=== PATIENT | male | born 1960 | race Caucasian/White ===

== ENCOUNTER 2019-08-03 01:07 | Emergency (ER) | payer BC ==
[~2019-08-03] VITALS: Ht 185.4 cm; Wt 83.9 kg
--- NOTE | 2019-08-03 01:23 | ED.ADGEN ---
Past History Past Medical History: GERD, Kidney Stones, Other Past Medical History Bilateral inguinal hernias Smoking: Cigarettes Adult General Chief Complaint Chief Complaint ".. I am having bad abdomen pain... I ve had it off and on the past month or so.. 2 weeks I had a really bad spell. . and tonight it is again really bad.. ".. It seem to start in my upper area.. but now... it is in my flank or the right.. and down here on right.. I got bad inguinal hernias. .. I ve had past GERD.. kidney stones.. .. 5- 6 yrs ago.. I had bad spell and it was because I got dehydrate.. I use to see Rustam.. but I have not been to his office maybe 12 rs." [facility] HPI Patient is a 59 year old male who presents with above hx and complaints epiga stric and severe abdomen pain patient rates his pain 10 out of 10. Patient has had pain persistently tonight and seems to be radiating from upper abdomen to right lower abdomen. Patient is also localized in right flank. Patient denies any trauma or specific ill contacts. No history of bad food. Did have a recent episode of diarrhea approximately 2 weeks ago. Pain has been somewhat intermittent for the past 2 weeks. Patient did have a stool tonight. Patient does have markedly large bilateral inguinal hernias. They appear to be reducible. Patient does have some pain on percussion of right flank. Patient's primary of the past has been Dr. Wall. Review of Systems Review of Systems Constitutional: Denies fever or chills [] Eyes: Denies change in visual acuity, redness, or eye pain [] HENT: Denies nasal congestion or sore throat [] Respiratory: Denies cough or shortness of breath [] Cardiovascular: No additional information not addressed in HPI [] GI: Complaints of epigastric and right flank and mid abdominal pain, nausea,. No recent history of, bloody stools or diarrhea []did have episode of diarrhea 2 weeks ago. Chronic large inguinal hernias. ( Not currently causing discomfort.) : Denies dysuria or hematuria [] Musculoskeletal: Complaints are right flank back pain Integument: Denies rash or skin lesions [] Neurologic: Denies headache, focal weakness or sensory changes [] Endocrine: Denies polyuria or polydipsia [] All other systems were reviewed and found to be within normal limits, except as documented in this note. Family History Family History Noncontributory Current Medications Current Medications Current Medications Medications (Trade) Dose Ordered Sig/Lauren Start Time Stop Time Status Last Admin Dose Admin Ceftriaxone Sodium 1 gm/ Sodium Chloride 50 ml @ 100 mls/hr 1X ONCE 08/03/19 05:30 08/03/19 05:59 DC 08/03/19 05:46 100 MLS/HR Ceftriaxone Sodium (Rocephin) 1 gm STK-MED ONCE 08/03/19 05:32 08/03/19 05:32 DC Famotidine (Pepcid Vial) 20 mg 1X ONCE 08/03/19 01:45 08/03/19 03:23 DC 08/03/19 02:31 20 MG Info (Do NOT chart on this entry -- for MONITORING) 1 each PRN DAILY PRN 08/03/19 03:30 08/05/19 03:29 Iohexol (Omnipaque 240 Mg/ml) 30 ml 1X ONCE 08/03/19 03:15 08/03/19 03:23 DC 08/03/19 04:03 30 ML Iohexol (Omnipaque 300 Mg/ml) 75 ml 1X ONCE 08/03/19 03:15 08/03/19 03:23 DC 08/03/19 04:03 75 ML Ketorolac Tromethamine (Toradol 30mg Vial) 30 mg 1X ONCE 08/03/19 01:45 08/03/19 03:23 DC 08/03/19 02:31 30 MG Lactated Ringer's 1,000 ml @ 1,000 mls/hr Q1H 08/03/19 01:40 08/03/19 03:23 DC 08/03/19 02:30 1,000 MLS/HR Metronidazole 100 ml @ 100 mls/hr 1X ONCE 08/03/19 05:30 08/03/19 06:29 DC 08/03/19 05:46 100 MLS/HR Morphine Sulfate (Morphine 10mg Syringe) 10 mg 1X ONCE 08/03/19 02:15 08/03/19 03:23 DC 08/03/19 02:43 10 MG Ondansetron HCl (Zofran) 8 mg 1X ONCE 08/03/19 01:45 10/28/19 03:23 DC 08/03/19 02:30 8 MG Sodium Chloride 50 ml @ As Directed STK-MED ONCE 08/03/19 05:31 08/03/19 05:32 DC Allergies Allergies Allergies Coded Allergies Type Severity Reaction Last Updated Verified No Known Drug Allergies 08/03/19 No See nursing for home meds and allergies Physical Exam Physical Exam Constitutional: in acute distress, non-toxic appearance. [] HENT: Normocephalic, atraumatic, bilateral external ears normal, oropharynx dry,, no oral exudates, nose normal. [] Eyes: PERRLA, EOMI, conjunctiva normal, no discharge. [] Neck: Normal range of motion, no tenderness, supple, no stridor. [] Cardiovascular:Heart rate regular rhythm, no murmur [] Lungs & Thorax: Bilateral breath sounds equal at apexes scattered wheezes on auscultation [] Abdomen: Bowel sounds normal, soft, epigastric and right flank abdomen tenderness, large bilateral inguinal hernias, the areas appear to be reducible, no pulsatile masses. [] Rebound to mid abdomen and right flank Skin: Warm, diaphoretic, no erythema, no rash. [] Back: No tenderness, right CVA tenderness. [] Extremities: No tenderness, no cyanosis, no clubbing, ROM intact, no edema. [] No significant psoas sign. Neurologic: Alert and oriented X 3, normal motor function, normal sensory function, no focal deficits noted. [] Psychologic: Affect anxious, judgement normal, mood normal. [] Current Patient Data Vital Signs Vital Signs Date Time Temp Pulse Resp B/P (MAP) Pulse Ox O2 Delivery O2 Flow Rate FiO2 08/03/19 05:58 70 18 143/86 (105) 95 Room Air 08/03/19 01:10 97.8 Lab Results Laboratory Tests Test 08/03/19 01:22 08/03/19 01:32 Urine Collection Type Unknown Urine Color Yellow Urine Clarity Clear Urine pH 6.5 Urine Specific [place] 1.010 Urine Protein Neg (NEG-TRACE) Urine Glucose (UA) Neg mg/dL (NEG) Urine Ketones (Stick) Neg mg/dL (NEG) Urine Blood Trace (NEG) Urine Nitrite Neg (NEG) Urine Bilirubin Neg (NEG) Urine Urobilinogen Dipstick 0.2 mg/dL (0.2 mg/dL) Urine Leukocyte Esterase Neg (NEG) Urine RBC 0 /HPF (0-2) Urine WBC Occ /HPF (0-4) Urine Squamous Epithelial Cells None /LPF Urine Bacteria 0 /HPF (0-FEW) Urine Opiates Screen Neg (NEG) Urine Methadone Screen Neg (NEG) Urine Barbiturates Neg (NEG) Urine Phencyclidine Screen Neg (NEG) Urine Amphetamine/Methamphetamine Neg (NEG) Urine Benzodiazepines Screen Neg (NEG) Urine Cocaine Screen Neg (NEG) Urine Cannabinoids Screen Neg (NEG) Urine Ethyl Alcohol Neg (NEG) White Blood Count 10.9 x10^3/uL (4.0-11.0) Red Blood Count 4.51 x10^6/uL (4.30-5.70) Hemoglobin 15.2 g/dL (13.0-17.5) Hematocrit 44.1 % (39.0-53.0) Mean Corpuscular Volume 98 fL (79-100) Mean Corpuscular Hemoglobin 34 pg (25-35) Mean Corpuscular Hemoglobin Concent 34 g/dL (31-37) Red Cell Distribution Width 13.5 % (11.5-14.5) Platelet Count 311 x10^3/uL (140-400) Neutrophils (%) (Auto) 71 % (31-73) Lymphocytes (%) (Auto) 21 % (24-48) L Monocytes (%) (Auto) 7 % (0-9) Eosinophils (%) (Auto) 1 % (0-3) Basophils (%) (Auto) 1 % (0-3) Neutrophils # (Auto) 7.7 x10^3uL (1.8-7.7) Lymphocytes # (Auto) 2.3 x10^3/uL (1.0-4.8) Monocytes # (Auto) 0.8 x10^3/uL (0.0-1.1) Eosinophils # (Auto) 0.2 x10^3/uL (0.0-0.7) Basophils # (Auto) 0.1 x10^3/uL (0.0-0.2) Prothrombin Time 9.9 SEC (9.4-11.4) Prothrombin Time INR 1.0 (0.9-1.1) Activated Partial Thromboplast Time 29 SEC (23-33) Sodium Level 136 mmol/L (136-145) Potassium Level 3.9 mmol/L (3.5-5.1) Chloride Level 99 mmol/L (98-107) Carbon Dioxide Level 28 mmol/L (21-32) Anion Gap 9 (6-14) Blood Urea Nitrogen 9 mg/dL (8-26) Creatinine 0.8 mg/dL (0.7-1.3) Estimated GFR (Cockcroft-Gault) 98.3 Glucose Level 111 mg/dL (70-99) H Calcium Level 8.8 mg/dL (8.5-10.1) Total Bilirubin 0.3 mg/dL (0.2-1.0) Direct Bilirubin 0.1 mg/dL (0.0-0.2) Aspartate Amino Transferase (AST) 16 U/L (15-37) Alanine Aminotransferase (ALT) 21 U/L (16-63) Alkaline Phosphatase 87 U/L (46-116) Creatine Kinase 98 U/L (39-308) Troponin I Quantitative < 0.017 ng/mL (0-0.055) Total Protein 7.3 g/dL (6.4-8.2) Albumin 4.1 g/dL (3.4-5.0) Lipase 95 U/L (73-393) EKG EKG My interpretation of EKG shows a sinus rhythm at 82 bpm. Does have bimodal P waves in left leads. No findings acute STEMI of contralateral changes Radiology/Procedures Radiology/Procedures [][address] [address] IMAGING REPORT Signed PATIENT: DOROTA WILLIAM ACCOUNT: [id number] : 1960 LOCATION: ER AGE: 59 SEX: M EXAM STATUS: REG ER ORD. PHYSICIAN: DEBI VELASCO MD REASON: pain Rt. abd. OMNI 300, 75ml & OMNI 240, 30ml PROCEDURE: CT ABD PELV W/ORAL&IV CONTRAST CT SCAN OF THE ABDOMEN AND PELVIS WITH IV CONTRAST. History: Right-sided abdominal pain Comparison:None. Procedure: Contiguous axial images of the abdomen and pelvis were performed after the administration of 75 cc of Omni 300 IV contrast. Oral contrast: 30 mL of Omni 240. Findings: There are 2 very large bowel containing inguinal canal hernias with bowel content in the scrotum right worse than left on the left there is a long segment of the colon at the junction of descending colon and sigmoid colon on the right there is the right colon and distal ileum. The appendix appears normal but is in the right hemiscrotum. There is no bowel wall thickening or obstruction seen due to the hernias. There is a short segment of mild to moderate bowel wall thickening of small bowel in the midabdomen. There is a small hydrocele on the right. Liver: Unremarkable Spleen: Unremarkable Pancreas: Unremarkable Adrenal Glands: Unremarkable Kidneys: Unremarkable There is no mass or lymphadenopathy. There is no free air. There is no free fluid. The urinary bladder appears normal. Impression: 1. 2 very large inguinal canal hernias containing bowel is herniated bowel into the scrotum bilaterally right worse than left. There is no CT evidence of obstruction or incarceration secondary to these hernias. 2. There is a segment of small bowel wall thickening in the mid abdomen which could be inflammatory or infectious enteritis. PQRS Compliance Statement: One or more of the following individualized dose reduction techniques were utilized for this examination: 1. Automated exposure control 2. Adjustment of the mA and/or kV according to patient size 3. Use of iterative reconstruction technique Electronically signed by: Donavan Mancia III, MD (08/03/2019 4:50 AM) [facility] DICTATED AND SIGNED BY: DONAVAN MANCIA III, MD DATE: 08/03/19 0450 CC: SETH WALL MD; DEBI VELASCO MD ~ Course & Med Decision Making Course & Med Decision Making Pertinent Labs and Imaging studies reviewed. (See chart for details) Patient reports marked decrease and abdomen discomfort and requesting discharge at 0600 hrs. discussed at length patient's labs and CT findings. Patient still insistent on discharge and no surgical referral at this time. Patient remain on clear fluid diet for the next 2 days. No solids or milk products. Patient enc ouraged to follow-up with Dr. Wall and GI and/or surgery. Patient will be given a course of Flagyl 500 mg and Keflex 500 mg 3 times a day for the next 10 days-7 days. Zofran 8 mg up 4 times a day for nausea and vomiting. Patient take Tylenol as needed for pain. Encouraged patient to stop smoking. Patient Return if increased pain or concerns. Must however follow-up. [] Final Impression Final Impression 1. Abdomen pain 2. Right flank pain 3. Bilateral inguinal hernias 4.[Small Bowel Thickening- Inflammatory vs infectious enteritis 5. Tobacco Use. Dragon Disclaimer Dragon Disclaimer This electronic medical record was generated, in whole or in part, using a voice recognition dictation system. Dragon Disclaimer This chart was dictated in whole or in part using Voice Recognition software in a busy, high-work load, and often noisy Emergency Department environment. It may contain unintended and wholly unrecognized errors or omissions. Dragon Disclaimer This chart was dictated in whole or in part using Voice Recognition software in a busy, high-work load, and often noisy Emergency Department environment. It may contain unintended and wholly unrecognized errors or omissions. Dragon Disclaimer This chart was dictated in whole or in part using Voice Recognition software in a busy, high-work load, and often noisy Emergency Department environment. It may contain unintended and wholly unrecognized errors or omissions. DEBI VELASCO MD Aug 03, 2019 01:23
[2019-08-03] MEDS ORDERED: IV RINGERS SOLUTION,LACTATED 1,000 ML IV SCH (01:40)
[2019-08-03] MEDS ORDERED: FAMOTIDINE 20 MG/2 ML VIAL IVP ONE (01:45)
[2019-08-03] MEDS ORDERED: ONDANSETRON PF 4 MG/2 ML VIAL. IVP ONE (01:45)
[2019-08-03] MEDS ORDERED: KETOROLAC 30 MG/ML VIAL. IVP ONE (01:45)
[2019-08-03 01:59] LABS: BASO # 0.1 x10^3/uL (0.0-0.2); BASO % 1 % (0-3); EOS # 0.2 x10^3/uL (0.0-0.7); EOS % 1 % (0-3); HEMATOCRIT 44.1 % (39.0-53.0); HEMOGLOBIN 15.2 g/dL (13.0-17.5); LYMPH # 2.3 x10^3/uL (1.0-4.8); LYMPH % 21 % (24-48); MEAN CORPUSCULAR HEMOGLOBIN 34 pg (25-35); MEAN CORPUSCULAR HGB CONC 34 g/dL (31-37); MEAN CORPUSCULAR VOLUME 98 fL (79-100); MONO # 0.8 x10^3/uL (0.0-1.1); MONO % 7 % (0-9); NEUT # 7.7 x10^3uL (1.8-7.7); NEUT % 71 % (31-73); PLATELET COUNT 311 x10^3/uL (140-400); RED BLOOD COUNT 4.51 x10^6/uL (4.30-5.70); RED CELL DISTRIBUTION WIDTH 13.5 % (11.5-14.5); WHITE BLOOD COUNT 10.9 x10^3/uL (4.0-11.0)
--- NOTE | 2019-08-03 02:01 | EKG ---
[address] [address] Test Date: 2019-08-03 Test Time: 01:58:46 Pat Name: DOROTA WILLIAM Department: Room: Gender: M Ranger Aide: : 1960 Requested By: DEBI VELASCO Order Number: [id number] Reading MD: Measurements Intervals [place] Rate: 82 P: 65 DE: 172 QRS: 81 QRSD: 90 T: 48 QT: 336 QTc: 395 Interpretive Statements SINUS RHYTHM LEFT ATRIAL ABNORMALITY ABNORMAL ECG RI6.01 No previous ECG available for comparison
[2019-08-03 02:10] LABS: BACTERIA,URINE 0 /HPF (0-FEW); BARBITURATES NEG (NEG); BENZODIAZEPINES NEG (NEG); BILIRUBIN,URINE NEG (NEG); CANNABINOIDS NEG (NEG); CLARITY,URINE CLEAR; COCAINE NEG (NEG); COLOR,URINE YELLOW; GLUCOSE,URINE NEG (NEG); METHADONE NEG (NEG); NITRITE,URINE NEG (NEG); OPIATES NEG (NEG); PHENCYCLIDINE NEG (NEG); RBC,URINE 0 /HPF (0-2); UROBILINOGEN,URINE 0.2 mg/dL (0.2 mg/dL); WBC,URINE OCC /HPF (0-4)
[2019-08-03 02:15] LABS: ALBUMIN 4.1 g/dL (3.4-5.0); CALCIUM 8.8 mg/dL (8.5-10.1); CREATININE 0.8 mg/dL (0.7-1.3); DIRECT BILIRUBIN 0.1 mg/dL (0.0-0.2); GFR 98.3; POTASSIUM 3.9 mmol/L (3.5-5.1); TOTAL BILIRUBIN 0.3 mg/dL (0.2-1.0); TOTAL PROTEIN 7.3 g/dL (6.4-8.2)
[2019-08-03] MEDS ORDERED: MORPHINE SULFATE 10 MG/ML SYRINGE. SQ ONE (02:15)
[2019-08-03 02:19] LABS: AMPHETAMINE/METHAMPHETAMINE NEG (NEG)
[2019-08-03] MEDS ORDERED: IOHEXOL 300 MG/ML 75 ML VIAL. IV ONE (03:15)
[2019-08-03] MEDS ORDERED: IOHEXOL 240 MG/ML 50ML VIAL. PO ONE (03:15)
[2019-08-03] MEDS ORDERED: CONTRAST GIVEN MC PRN (03:30)
--- NOTE | 2019-08-03 04:53 | RAD ---
CT SCAN OF THE ABDOMEN AND PELVIS WITH IV CONTRAST. History: Right-sided abdominal pain Comparison:None. Procedure: Contiguous axial images of the abdomen and pelvis were performed after the administration of 75 cc of Omni 300 IV contrast. Oral contrast: 30 mL of Omni 240. Findings: There are 2 very large bowel containing inguinal canal hernias with bowel content in the scrotum right worse than left on the left there is a long segment of the colon at the junction of descending colon and sigmoid colon on the right there is the right colon and distal ileum. The appendix appears normal but is in the right hemiscrotum. There is no bowel wall thickening or obstruction seen due to the hernias. There is a short segment of mild to moderate bowel wall thickening of small bowel in the midabdomen. There is a small hydrocele on the right. Liver: Unremarkable Spleen: Unremarkable Pancreas: Unremarkable Adrenal Glands: Unremarkable Kidneys: Unremarkable There is no mass or lymphadenopathy. There is no free air. There is no free fluid. The urinary bladder appears normal. Impression: 1. 2 very large inguinal canal hernias containing bowel is herniated bowel into the scrotum bilaterally right worse than left. There is no CT evidence of obstruction or incarceration secondary to these hernias. 2. There is a segment of small bowel wall thickening in the mid abdomen which could be inflammatory or infectious enteritis. PQRS Compliance Statement: One or more of the following individualized dose reduction techniques were utilized for this examination: 1. Automated exposure control 2. Adjustment of the mA and/or kV according to patient size 3. Use of iterative reconstruction technique Electronically signed by: Edwin Gandhi III, MD (08/03/2019 4:50 AM) [facility]
[2019-08-03] MEDS ORDERED: IV NORMAL SALINE 50ML 50 ML ONE (05:31)
[2019-08-03] MEDS ORDERED: cefTRIAXone SODIUM 1 GM VIAL ONE (05:32)
--- NOTE | 2019-08-03 06:14 | RAD ---
Acute Abdominal Series: Technique: PA view of the chest and supine and upright views of the abdomen were obtained. History: Pain. Comparison: None. Findings: The lungs and pleural margins are clear. There is air and stool in a few loops of large bowel. There is air within a few loops of small bowel with a few air-fluid levels. There is no free air. Impression: Abnormal bowel gas pattern suggesting possible partial small bowel obstruction. Electronically signed by: Edwin Gandhi III, MD (08/03/2019 6:11 AM) [facility]
[2019-08-03] MEDS ORDERED: CEPH-264 PO (06:16)
[2019-08-03] MEDS ORDERED: METR500T PO (06:16)
[2019-08-03] MEDS ORDERED: ONDA8TAB9 PO (06:16)
[2019-08-03 07:00] VITALS: BP 120/77
== END 2019-08-03 07:02 | disposition home or self-care (01) ==
LOC: ER 01:07
DX: K40.20 Bilateral inguinal hernia, without obstruction or gangrene, not specified as recurrent (principal); K21.9 Gastro-esophageal reflux disease without esophagitis; R19.7 Diarrhea, unspecified; F17.210 Nicotine dependence, cigarettes, uncomplicated; Z87.442 Personal history of urinary calculi
CPT/HCPCS: 36415; 74022; 74177; 80048; 80076; 80307; 81001; 82550; 83690; 84484; 85025; 85610; 85730; 93005; 96361; 96365; 96368; 96372; 96375; 99285; J0696; J1885; J2270; J2405; J3490; J7120; Q9966; Q9967